=== PATIENT | male | born 1970 | race Caucasian/White ===

== ENCOUNTER 2017-08-15 17:28 | Emergency (ER) | payer OTHER ==
[~2017-08-15] VITALS: Ht 167.6 cm; Wt 140.6 kg
[~2017-08-15 17:28] MED LIST: ANTIFUNGAL15 G1 TP; AUGMENTIN 875875 M1 PO; CEPHALEXIN 500500 M1 PO; MEDROLDOSEPACK PO; NOHOMEMEDICATIONS; TOBRAMYCIN SULFA5 ML OP
[2017-08-15 17:40] VITALS: BP 158/98
[2017-08-15] MEDS ORDERED: GLYBURIDE 2.52.5 MG PO (17:42)
[2017-08-15] MEDS ORDERED: METFORMIN HCL500 MG PO (17:42)
[2017-08-15] MEDS ORDERED: BACTRIM DS TAB1 EACH PO (17:52)
[2017-08-15] MEDS ORDERED: ACYCLOVIR 400400 MG PO (17:52)
== END 2017-08-15 17:57 | disposition home or self-care (01) ==
LOC: M.ERS 17:28
DX: A60.02 Herpesviral infection of other male genital organs (principal); E11.9 Type 2 diabetes mellitus without complications; I10 Essential (primary) hypertension; G47.30 Sleep apnea, unspecified